=== PATIENT | female | born 1990 | race African-American/Black ===

== ENCOUNTER 2020-11-17 09:24 | Emergency (ER) | payer SELFPAY ==
[~2020-11-17] VITALS: Ht 177.8 cm; Wt 108.9 kg
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
[2020-11-17] MEDS ORDERED: ACETAMINOPHEN ES 500 MG TABLET ONE (10:53)
[2020-11-17] MEDS ORDERED: ACETAMINOPHEN ES 500 MG TABLET PO ONE (11:00)
--- NOTE | 2020-11-17 11:58 | NUR ---
Patient discharged to home in stable condition. Written and verbal after care instructions given. Patient verbalizes understanding of instruction.
[2020-11-17 11:59] VITALS: BP 121/64
== END 2020-11-17 11:59 | disposition home or self-care (01) ==
LOC: ER 09:33
DX: S31.119A Laceration without foreign body of abdominal wall, unspecified quadrant without penetration into peritoneal cavity, initial encounter (principal); S80.12XA Contusion of left lower leg, initial encounter; V03.99XA Pedestrian with other conveyance injured in collision with car, pick-up truck or van, unspecified whether traffic or nontraffic accident, initial encounter; Y93.89 Activity, other specified; Y92.89 Other specified places as the place of occurrence of the external cause; Y99.8 Other external cause status
CPT/HCPCS: 72170-TC; 73552; 73590-TC

== ENCOUNTER 2020-12-06 10:24 | Emergency (ER) | payer SELFPAY ==
[~2020-12-06] VITALS: Ht 177.8 cm; Wt 108.9 kg
[2020-12-06 10:32] VITALS: BP 126/76
[2020-12-06] MEDS ORDERED: NAPR-1164 PO (11:52)
== END 2020-12-06 12:51 | disposition home or self-care (01) ==
LOC: ER 10:30
DX: S89.82XA Other specified injuries of left lower leg, initial encounter (principal); Z79.899 Other long term (current) drug therapy; W22.8XXA Striking against or struck by other objects, initial encounter; Y93.89 Activity, other specified; Y92.89 Other specified places as the place of occurrence of the external cause; Y99.8 Other external cause status
CPT/HCPCS: 93971-TC